=== PATIENT | male | born 1975 | race Caucasian/White ===

== ENCOUNTER 2020-10-07 08:57 | Outpatient (REF) | payer BC, SELFPAY ==
[2020-10-07 11:21] LABS: MANUAL DIFF FLAG NO
[2020-10-07 11:44] LABS: Basophils Percent Auto 0.4 % (0-2); Eosinophils Absolute Auto 0.1 X10*3/uL (0.0-0.4); Eosinophils Percent Auto 2.9 % (0-4); Hematocrit 47.7 % (42-52); Hemoglobin 16.1 g/dl (14.0-18.0); Imm Gran Abs Auto 0.01 X10*3/uL (0.00-0.03); Imm Gran Pct Auto 0.2 % (0.0-0.4); Lymphocytes Absolute Auto 1.6 X10*3/uL (1.2-4.9); Lymphocytes Percent Auto 32.9 % (20-40); Mean Corpuscular HGB Conc 33.8 g/dl (31.0-36.0); Mean Corpuscular Hemoglobin 29.8 pg (27.0-33.0); Mean Corpuscular Volume 88.2 fL (80-98); Mean Platelet Volume 10.7 fL (9.4-12.4); Monocytes Absolute Auto 0.3 X10*3/uL (0.1-1.2); Monocytes Percent Auto 5.5 % (2-11); Neutrophils Absolute Auto 2.8 X10*3/uL (2.0-8.3); Neutrophils Percent Auto 58.1 % (45-73); Platelet Count 205 X10*3/uL (160-400); Red Blood Count 5.41 X10*6/uL (4.60-5.80); Red Cell Distribution Width 12.1 % (11.0-16.0); White Blood Count 4.9 X10*3/uL (4.8-10.8)
[2020-10-07 11:55] LABS: Glucose Urine UA NEG (NEG); Leukocyte Esterase Urine NEG (NEG); Nitrite Urine NEG (NEG); Urine Blood NEG (NEG); Urine Ketones NEG (NEG); Urine Protein NEG (NEG-TRACE)
[2020-10-07 12:02] LABS: Appearance Urine CLEAR; Color Urine YELLOW
[2020-10-07 12:08] LABS: RBC Urine 0 /HPF (0); Squamous Epithelial Cell Urine TRACE /LPF; Urine Talc Crystals TRACE /LPF; WBC Urine 0-2 /HPF (0-4)
[2020-10-07 12:16] LABS: Alanine Aminotransferase 51 U/L (0-40); Albumin Level 4.8 g/dL (3.5-5.0); Alkaline Phosphatase 42 U/L (39-117); Anion Gap 13 (12-20); Aspartate Amino Transferase 19 U/L (5-37); Bilirubin Total 0.8 mg/dL (0.0-1.0); Blood Urea Nitrogen 14 mg/dL (9-16); C Reactive Protein 0.03 mg/dL (< or = 0.50); Calcium 9.4 mg/dL (8.4-10.2); Carbon Dioxide 29 mmol/L (22-29); Chloride 103 mmol/L (96-108); Cholesterol 236 mg/dL; Estimated Glomerular Filt Rate > 60; Glucose Fasting 87 mg/dL (60-99); HDL Cholesterol 41 mg/dL; LDL Cholesterol Calculated 157 mg/dl; Potassium 4.6 mmol/L (3.3-5.1); Sodium 140 mmol/L (135-145); Total Protein 7.3 g/dL (6.5-8.0); Triglycerides 190 mg/dL; Uric Acid 7.2 mg/dL (3.4-7.0)
[2020-10-07 12:25] LABS: Prostate Specific Antigen 0.75 ng/mL (<0.05-4.0); Thyroid Stimulating Hormone 1.29 uIU/mL (0.32-4.0); Vitamin D 25-OH Total 38.5 ng/mL (>30)
[2020-10-07 12:41] LABS: Folate 14.4 ng/mL (> or = 4.0); Vitamin B12 942 pg/mL (200-900)
[2020-10-07 13:52] LABS: Erythrocyte Sedimentation Rate 1 MM/HR (0-15)
[2020-10-09 14:11] LABS: Anti Nuclear Antibody Screen NEGATIVE (NEGATIVE)
== END 2020-10-07 08:58 | disposition home or self-care (01) ==
LOC: HO.HMGCLDS 08:57
PROVIDERS: PCP Internal Medicine; Visit Provider Internal Medicine
DX: M54.32 Sciatica, left side (principal); K64.1 Second degree hemorrhoids; M10.00 Idiopathic gout, unspecified site; L43.9 Lichen planus, unspecified; E55.9 Vitamin D deficiency, unspecified; E53.8 Deficiency of other specified B group vitamins; E78.2 Mixed hyperlipidemia; R76.8 Other specified abnormal immunological findings in serum; Z12.5 Encounter for screening for malignant neoplasm of prostate
CPT/HCPCS: 36415; 80053; 80061; 81001; 82306; 82607; 82746; 84153; 84443; 84550; 85025; 85652; 86038; 86039; 86140

== ENCOUNTER → 2020-10-14 09:43 | Outpatient (BNVA) | payer BC, SELFPAY | PROVIDERS: PCP Internal Medicine; Visit Provider Surgery | DX: K64.4 Residual hemorrhoidal skin tags (principal); K64.8 Other hemorrhoids | CPT/HCPCS: 46600 ==

== ENCOUNTER 2020-11-14 08:54 | Outpatient (REF) | payer BC, SELFPAY ==
--- NOTE | ~2020-11-14 | MR_ITS ---
EXAMINATION: MR LUMBAR SPINE WITHOUT CONTRAST CLINICAL INFORMATION: Left-sided sciatica. Left leg pain and weakness. COMPARISON: None TECHNIQUE: MRI of the lumbar spine was obtained using routine sequences without contrast. FINDINGS: VERTEBRAL BODIES AND PARASPINAL STRUCTURES: The lumbar lordosis is maintained. Grade 1 retrolisthesis of L5 on S1 measuring 0.6 cm. No acute fracture. No loss of vertebral body height. Loss of intervertebral disc height with disc desiccation at L5-S1. No abnormal marrow signal to suggest acute osseous injury. The visualized paraspinal soft tissues are unremarkable. CONUS MEDULLARIS AND CAUDA EQUINA: Normal, terminating at the level of L1. SPINAL LEVELS: T12-L1: No significant disc bulge. No central canal or neural foraminal stenosis. L1-L2: No significant disc bulge. No central canal or neural foraminal stenosis. L2-L3: No significant disc bulge. No central canal or neural foraminal stenosis. L3-L4: No significant disc bulge. Bilateral facet arthropathy. No central canal or neural foraminal stenosis. L4-L5: Minimal disc bulge with bilateral facet arthropathy. No central canal or neural foraminal stenosis. L5-S1: Broad-based disc bulge with a superimposed posterior central disc protrusion. This appears to contact the traversing bilateral S1 nerve roots within the lateral recesses, left greater than right. Bilateral facet arthropathy with mild bilateral neural foraminal stenosis. MR/MR lumbar spine wo con IMPRESSION: 1. Minimal grade 1 retrolisthesis of L5 on S1 with a broad-based disc bulge and superimposed posterior central disc protrusion. This contacts the bilateral traversing S1 nerve roots, left greater than right. Bilateral facet arthropathy with mild bilateral neural foraminal stenosis. 2. Minimal disc bulge at L4-L5 with bilateral facet arthropathy. No significant central canal or neural foraminal stenosis.
== END 2020-11-14 08:55 | disposition home or self-care (01) ==
LOC: HO.MRI 08:54
PROVIDERS: Visit Provider Internal Medicine
DX: M54.32 Sciatica, left side (principal)
CPT/HCPCS: 72148

== ENCOUNTER 2021-01-02 08:00 | Outpatient (RCR) | payer BC, SELFPAY | END 2021-02-05 13:47 | disposition home or self-care (01) | LOC: HO.PTCHIC 08:00 | PROVIDERS: PCP Internal Medicine; Visit Provider Internal Medicine | DX: M54.32 Sciatica, left side (principal); R20.2 Paresthesia of skin; R53.1 Weakness | CPT/HCPCS: 97014; 97110; 97140; 97162 ==

== ENCOUNTER 2021-01-27 06:27 | Outpatient (REF) | payer BC, SELFPAY ==
[2021-01-27 11:44] LABS: Alanine Aminotransferase 33 U/L (0-40); Albumin Level 4.5 g/dL (3.5-5.0); Alkaline Phosphatase 41 U/L (39-117); Aspartate Amino Transferase 19 U/L (5-37); Bilirubin Direct 0.3 mg/dL (0.0-0.5); Bilirubin Total 0.8 mg/dL (0.0-1.0); Cholesterol 211 mg/dL; HDL Cholesterol 41 mg/dL; LDL Cholesterol Calculated 135 mg/dl; Total Protein 6.9 g/dL (6.5-8.0); Triglycerides 179 mg/dL
[2021-01-27 11:54] LABS: Uric Acid 7.6 mg/dL (3.4-7.0)
== END 2021-01-27 06:28 | disposition home or self-care (01) ==
LOC: HO.HMGCLDS 06:27
PROVIDERS: PCP Internal Medicine; Visit Provider Internal Medicine
DX: E78.2 Mixed hyperlipidemia (principal); M10.00 Idiopathic gout, unspecified site
CPT/HCPCS: 36415; 80061; 80076; 84550

== ENCOUNTER 2021-09-05 09:00 | Outpatient (RCR) | payer BC, SELFPAY | END 2021-09-05 10:26 | disposition home or self-care (01) | LOC: HO.PTCHIC 09:00 | PROVIDERS: PCP Internal Medicine; Visit Provider Internal Medicine | DX: M54.31 Sciatica, right side (principal) | CPT/HCPCS: 97110; 97112; 97140; 97161; 97164; 97530 ==

== ENCOUNTER 2021-10-02 06:19 | Outpatient (REF) | payer BC, SELFPAY ==
[2021-10-02 11:28] LABS: Basophils Percent Auto 0.8 % (0-2); Eosinophils Absolute Auto 0.1 X10*3/uL (0.0-0.4); Eosinophils Percent Auto 2.3 % (0-4); Hematocrit 46.7 % (42.0-52.0); Hemoglobin 15.5 g/dl (14.0-18.0); Imm Gran Abs Auto 0.01 X10*3/uL (0.00-0.03); Imm Gran Pct Auto 0.3 % (0.0-0.4); Lymphocytes Absolute Auto 1.5 X10*3/uL (1.2-4.9); Lymphocytes Percent Auto 37.4 % (20-40); MANUAL DIFF FLAG NO; Mean Corpuscular HGB Conc 33.2 g/dl (31.0-36.0); Mean Corpuscular Hemoglobin 29.1 pg (27.0-33.0); Mean Corpuscular Volume 87.6 fL (80.0-98.0); Mean Platelet Volume 11.7 fL (9.4-12.4); Monocytes Absolute Auto 0.3 X10*3/uL (0.1-1.2); Monocytes Percent Auto 6.8 % (2-11); Neutrophils Absolute Auto 2.1 x10*3/uL (2.0-8.3); Neutrophils Percent Auto 52.4 % (45-73); Platelet Count 198 X10*3/uL (160-400); Red Blood Count 5.33 X10*6/uL (4.60-5.80); Red Cell Distribution Width 12.3 % (11.0-16.0)
[2021-10-02 12:02] LABS: Alanine Aminotransferase 35 U/L (0-40); Albumin Level 4.6 g/dL (3.5-5.0); Alkaline Phosphatase 41 U/L (39-117); Anion Gap 13 (12-20); Aspartate Amino Transferase 23 U/L (5-37); Bilirubin Total 1.1 mg/dL (0.0-1.0); Blood Urea Nitrogen 11 mg/dL (9-16); Calcium 9.9 mg/dL (8.4-10.2); Carbon Dioxide 27 mmol/L (22-29); Chloride 104 mmol/L (96-108); Cholesterol 195 mg/dL; Estimated Glomerular Filt Rate > 60; Glucose Fasting 91 mg/dL (60-99); HDL Cholesterol 36 mg/dL; LDL Cholesterol Calculated 131 mg/dl; Potassium 4.5 mmol/L (3.3-5.1); Sodium 139 mmol/L (135-145); Total Protein 7.1 g/dL (6.5-8.0); Triglycerides 140 mg/dL; Uric Acid 6.9 mg/dL (3.4-7.0)
[2021-10-02 12:04] LABS: Thyroid Stimulating Hormone 1.85 uIU/mL (0.32-4.0); Vitamin D 25-OH Total 39.5 ng/mL (>30)
== END 2021-10-02 06:20 | disposition home or self-care (01) ==
LOC: HO.HMGCLDS 06:19
PROVIDERS: Visit Provider Internal Medicine
DX: Z00.00 Encounter for general adult medical examination without abnormal findings (principal); M10.00 Idiopathic gout, unspecified site; E55.9 Vitamin D deficiency, unspecified; E78.2 Mixed hyperlipidemia
CPT/HCPCS: 36415; 80053; 80061; 82306; 84443; 84550; 85025

== ENCOUNTER 2022-05-01 06:55 | Day surgery (SDC) | payer OTHER, SELFPAY ==
[2022-04-28 12:48] VITALS: BMI 26.1
--- NOTE | 2022-04-30 13:38 | P.CONAN_ITS ---
Documented by User: Nikki Sage NP 04/30/22 13:38 HPI - Anesthesia Eval Consult details Narrative: 46yo M for Colonoscopy PMFSH Active Problems Active Problems: All Active Problems (Updated 04/28/22 @ 12:44 by Concetta Nunez RN) Misalignment of right hip (Acute) Segmental and somatic dysfunction of sacral region (Acute) Internal and external bleeding hemorrhoids (Acute) Sciatica (Acute) Past Medical History Medical History (Updated 04/28/22 @ 12:44 by Concetta Nunez RN) Internal and external bleeding hemorrhoids Sciatica Surgical History Surgical History (Updated 04/28/22 @ 12:44 by Concetta Nunez RN) History of hip surgery Social History Social History (Updated 04/28/22 @ 12:47 by Concetta Nunez RN) Household Members: Spouse Alcohol intake: former Patient Tobacco Use Status: Former Tobacco user Quit Date: 1997 Tobacco use type: Cigarette Use of substances other than those prescribed or required for medical reasons: Yes Substance Use Type Other:: CBD gummies Substance Use Frequency: Weekly Are you DNR?: No Advance Directives: No Advance Directives Information Provided: Yes Meds Allergies Allergy/AdvReac Type Severity Reaction Status Date / Time Penicillins Allergy Severe Unknown Verified 10/14/20 09:59 red dye Allergy Severe Unknown Verified 10/14/20 09:59 Home Medications Medication Instructions Recorded Confirmed Last Taken Type cholecalciferol (vitamin D3) 50 50 mcg PO DAILY 10/14/20 04/28/22 Unknown History mcg (2,000 unit) capsule hydrocortisone 2.5 % topical cream 1 appl [place] BID-QID PRN 10/14/20 10/14/20 Unknown History with perineal applicator (Proctozone-HC) mecobalamin (vitamin B12) 1,000 1,000 mcg sublingual DAILY 10/14/20 04/28/22 Unknown History mcg disintegrating tablet,sublingual niacin 400 mg (inositol niacinate 1 cap PO DAILY 10/14/20 04/28/22 Unknown History 500 mg) capsule (Niacin No Flush) flaxseed oil 1,000 mg capsule 1,000 mg PO DAILY 04/28/22 04/28/22 04/25/22 History turmeric (bulk) 95 % powder 1 ea miscellaneous DAILY 04/28/22 04/28/22 Unknown History (Curcumin) Exam Exam Date and Time: April 30, 2022 1338 Height,Weight and Vital Signs: Height 5 ft 10 in Weight 82.554 kg Assessment and Plan Assessment Anesthesia Assessment: Chart Reviewed Documented by User: Waylon Barrett MD 05/01/22 08:56 ON LICENSE OF [facility] Past Medical History Medical History (Updated 04/28/22 @ 12:44 by Concetta Nunez RN) Internal and external bleeding hemorrhoids Sciatica Functional capacity: bed bound Family History Family history of problems with anesthesia: No Surgical History Surgical History (Updated 04/28/22 @ 12:44 by Concetta Nunez RN) History of hip surgery History of Problems with Anesthesia: No Social History Social History (Updated 04/28/22 @ 12:47 by Concetta Nunez RN) Household Members: Spouse Alcohol intake: former Patient Tobacco Use Status: Former Tobacco user Quit Date: 1997 Tobacco use type: Cigarette Use of substances other than those prescribed or required for medical reasons: Yes Substance Use Type Other:: CBD gummies Substance Use Frequency: Weekly Are you DNR?: No Advance Directives: No Advance Directives Information Provided: Yes Meds Allergies Allergy/AdvReac Type Severity Reaction Status Date / Time Penicillins Allergy Severe Unknown Verified 10/14/20 09:59 red dye Allergy Severe Unknown Verified 10/14/20 09:59 Home Medications Medication Instructions Recorded Confirmed Last Taken Type cholecalciferol (vitamin D3) 50 50 mcg PO DAILY 10/14/20 04/28/22 Unknown His tory mcg (2,000 unit) capsule hydrocortisone 2.5 % topical cream 1 appl [place] BID-QID PRN 10/14/20 10/14/20 Unknown History with perineal applicator (Proctozone-HC) mecobalamin (vitamin B12) 1,000 1,000 mcg sublingual DAILY 10/14/20 04/28/22 Unknown History mcg disintegrating tablet,sublingual niacin 400 mg (inositol niacinate 1 cap PO DAILY 10/14/20 04/28/22 Unknown History 500 mg) capsule (Niacin No Flush) flaxseed oil 1,000 mg capsule 1,000 mg PO DAILY 04/28/22 04/28/22 04/25/22 History turmeric (bulk) 95 % powder 1 ea miscellaneous DAILY 04/28/22 04/28/22 Unknown History (Curcumin) Exam Airway Mallampati Class: III TM Dist: >3cm Neck ROM: Full Loose/Missing/Broken Teeth: Yes (Chipped teeth , crowns , fillings ) Heart: S1,S2 Lungs: b/l breath sounds Assessment and Plan Assessment Anesthesia Assessment: Anesthesia Plan Discussed Final Anesthetic Review Family History of Problems with Anesthesia: No History of Problems with Anesthesia: No NPO: Yes ASA Class: II Final Preanesthetic Review: Meds/Allgs Chart Reviewed, Consent Obtained/Reviewed and Anes Risks/Benef Reviewed Patient Risk: Intermediate Procedure Risk: Intermediate Anesthetic Plan Anesthetic Plan: MAC: Disposition: Standard PACU
[2022-05-01 07:10] VITALS: BP 110/74; PULSE 77; RESP 16; TEMP 37.1; O2SAT 100
[2022-05-01] MEDS: Lactated Ringers 1,000 ML 100 ML IVCONT (07:17)
--- NOTE | 2022-05-01 08:08 | MHC.SHP ---
Pre-Procedural Eval Section A Date of Service: 05/01/22 Section B Chief Complaint: screening Details of Present Illness: see H&P no changes Relevant Family History (Specify if Yes): No Relevant Social History: None Present Medications: see Short Stay Collaborative assessment Medical History: No relevant PMH History of Previous Operations: No relevant previous surgery Allergies: Allergies Allergy/AdvReac Type Severity Reaction Status Date / Time Penicillins Allergy Severe Unknown Verified 10/14/20 09:59 red dye Allergy Severe Unknown Verified 10/14/20 09:59 Review of Systems Sugical H&P ROS: Negative: Constitution, Cardiovascular, Respiratory, Neurological, Psychiatric, Hem-Onc, Allergic/Immunologic, Gastrointestinal, Genitourinary, Musculoskeletal, Integumentary, Endocrine and Eyes/Ears/Nose/Throat Exam Surgical H&P Exam: Normal: HEENT, Normal: Heart, Normal: Lungs, Normal: Extremities, Normal: Abdomen, Normal: Skin and Normal: Neurological Plan Diagnosis/Plan: Unchanged I have reviewed the history and physical and performed a pertinent physical examination on my patient. No changes have occurred unless specified.
[2022-05-01 08:41] VITALS: BP 100/52; PULSE 68; RESP 16; TEMP 37.7; O2SAT 98
--- NOTE | 2022-05-01 08:47 | P.BOP_ITS ---
Brief Operative Note Date of Service: 05/01/22 Pre-op diagnosis: screening Post-op diagnosis: same (colon polyps) Procedure: colonoscopy Surgeon: Medhat Lanza Anesthesia: MAC Was an Knitting Demonstrator used for this Procedure?: No Estimated blood loss (mL): 2 Pathology: other Condition: stable Disposition: PACU
[2022-05-01 09:00] VITALS: BP 110/61; PULSE 76; RESP 17; TEMP 36.4; O2SAT 99
--- NOTE | 2022-05-01 22:19 | OP_ITS ---
SURGEON: Medhat Lanza MD INDICATIONS: Colon cancer screening. PREOPERATIVE DIAGNOSIS: POSTOPERATIVE DIAGNOSIS: PROCEDURE PERFORMED: Colonoscopy to the terminal ilium. ESTIMATED BLOOD LOSS: COMPLICATIONS: ANESTHESIA: ASSISTANTS: SPECIMENS: DESCRIPTION OF PROCEDURE: Date: 05/01/22 History and physical performed. The risks and benefits of the procedure were explained to the patient. Informed consent was obtained. The patient was placed in the left lateral decubitus position. A digital rectal exam was performed and was found to be normal. The Olympus pediatric video colonoscope was introduced into the rectum and advanced to the cecum without difficulty. The cecum was identified by transillumination, palpation, and identification of the ileocecal valve. Examination was performed. The scope was removed. He tolerated the procedure well and was taken to recovery area in stable condition. FINDINGS: The terminal ileum was examined and appeared normal. The visualized colonic mucosa was normal. The quality of the prep was good. Two polyps were identified. The first was located at 60 cm and was removed with a snare. This measured approximately 8 mm. The 2nd was located in the rectum and measured less than 5 mm. This was removed with biopsy forceps. No other polyps were identified. Retroflexed examination showed some small internal hemorrhoids. IMPRESSION: Colon polyps. RECOMMENDATION: 1. Follow up the biopsy results. 2. Repeat colonoscopy in 7 years if the polyps are tubular adenomas. MD SHERWIN Nolasco/MANDY / [id number] MTDD
== END 2022-05-01 09:50 | disposition home or self-care (01) ==
PROVIDERS: PCP Internal Medicine; Visit Provider Internal Medicine Gastroenterology
PROC: 0DJD8ZZ Inspection of Lower Intestinal Tract, Via Natural or Artificial Opening Endoscopic (ICD-10-PCS; CPT 45378; principal; 2022-05-01 08:10)
DX: Z12.11 Encounter for screening for malignant neoplasm of colon (principal); D12.4 Benign neoplasm of descending colon; K62.1 Rectal polyp; K64.8 Other hemorrhoids; M51.36 Other intervertebral disc degeneration, lumbar region; M54.30 Sciatica, unspecified side; Z88.0 Allergy status to penicillin; Z87.891 Personal history of nicotine dependence
CPT/HCPCS: 45385; 45380; 88305

== ENCOUNTER 2022-05-06 10:59 | Outpatient (REF) | payer OTHER, SELFPAY ==
[2022-05-06 13:59] LABS: MANUAL DIFF FLAG NO
[2022-05-06 14:05] LABS: Basophils Percent Auto 0.6 % (0-2); Eosinophils Absolute Auto 0.1 X10*3/uL (0.0-0.4); Eosinophils Percent Auto 2.1 % (0-4); Hematocrit 46.6 % (42.0-52.0); Hemoglobin 15.5 g/dl (14.0-18.0); Imm Gran Abs Auto 0.01 X10*3/uL (0.00-0.03); Imm Gran Pct Auto 0.2 % (0.0-0.4); Lymphocytes Absolute Auto 2.2 X10*3/uL (1.2-4.9); Lymphocytes Percent Auto 32.9 % (20-40); Mean Corpuscular HGB Conc 33.3 g/dl (31.0-36.0); Mean Corpuscular Hemoglobin 28.9 pg (27.0-33.0); Mean Corpuscular Volume 86.8 fL (80.0-98.0); Mean Platelet Volume 11.3 fL (9.4-12.4); Monocytes Absolute Auto 0.4 X10*3/uL (0.1-1.2); Monocytes Percent Auto 5.9 % (2-11); Neutrophils Absolute Auto 3.8 x10*3/uL (2.0-8.3); Neutrophils Percent Auto 58.3 % (45-73); Platelet Count 214 X10*3/uL (160-400); Red Blood Count 5.37 X10*6/uL (4.60-5.80); Red Cell Distribution Width 12.7 % (11.0-16.0); White Blood Count 6.6 X10*3/uL (4.8-10.8)
[2022-05-06 14:44] LABS: Alanine Aminotransferase 39 U/L (0-40); Albumin Level 4.9 g/dL (3.5-5.0); Alkaline Phosphatase 46 U/L (39-117); Anion Gap 16 (12-20); Aspartate Amino Transferase 28 U/L (5-37); Bilirubin Total 0.4 mg/dL (0.0-1.0); Blood Urea Nitrogen 13 mg/dL (9-16); C Reactive Protein 0.04 mg/dL (< or = 0.50); Calcium 9.7 mg/dL (8.4-10.2); Carbon Dioxide 27 mmol/L (22-29); Chloride 100 mmol/L (96-108); Estimated Glomerular Filt Rate > 60; Glucose Random 79 mg/dL (60-115); Phosphorus 4.6 mg/dL (2.7-4.5); Potassium 4.4 mmol/L (3.3-5.1); Sodium 139 mmol/L (135-145); Total Protein 7.3 g/dL (6.5-8.0)
[2022-05-06 14:51] LABS: Erythrocyte Sedimentation Rate 2 MM/HR (0-15)
== END 2022-05-06 11:00 | disposition home or self-care (01) ==
LOC: HO.HMGCLDS 10:59
PROVIDERS: PCP Internal Medicine; Visit Provider Internal Medicine
DX: M62.89 Other specified disorders of muscle (principal)
CPT/HCPCS: 36415; 80053; 83735; 84100; 85025; 85652; 86140

== ENCOUNTER 2022-06-24 12:09 | Outpatient (REF) | payer OTHER, SELFPAY ==
--- NOTE | ~2022-06-24 | XR_ITS ---
EXAMINATION: XR FOOT, RIGHT XR FOOT, LEFT CLINICAL INFORMATION: Bilateral foot pain. COMPARISON: None TECHNIQUE: Each foot is imaged in 3 views. There are a total of 6 views. FINDINGS: Right: Normal bony mineralization. No periarticular demineralization. No acute or healing fracture, dislocation, or arthropathy. No erosive changes. No visible ankle capsular effusion. The subtalar joint appears normal. The retrocalcaneal recess is preserved. Left: Normal bony mineralization. No periarticular demineralization. No acute or healing fracture, dislocation, or arthropathy. No erosive changes. No visible ankle capsular effusion. The subtalar joint appears normal. The retrocalcaneal recess is preserved. XR/XR foot RT min 3V IMPRESSION: -Unremarkable bilateral feet. -No fracture or arthropathy.
--- NOTE | ~2022-06-24 | XR_ITS ---
EXAMINATION: XR FOOT, RIGHT XR FOOT, LEFT CLINICAL INFORMATION: Bilateral foot pain. COMPARISON: None TECHNIQUE: Each foot is imaged in 3 views. There are a total of 6 views. FINDINGS: Right: Normal bony mineralization. No periarticular demineralization. No acute or healing fracture, dislocation, or arthropathy. No erosive changes. No visible ankle capsular effusion. The subtalar joint appears normal. The retrocalcaneal recess is preserved. Left: Normal bony mineralization. No periarticular demineralization. No acute or healing fracture, dislocation, or arthropathy. No erosive changes. No visible ankle capsular effusion. The subtalar joint appears normal. The retrocalcaneal recess is preserved. XR/XR foot LT min 3V IMPRESSION: -Unremarkable bilateral feet. -No fracture or arthropathy.
[2022-06-24 14:12] LABS: MANUAL DIFF FLAG NO
[2022-06-24 14:16] LABS: Basophils Percent Auto 0.6 % (0-2); Eosinophils Absolute Auto 0.1 X10*3/uL (0.0-0.4); Eosinophils Percent Auto 2.1 % (0-4); Hematocrit 45.4 % (42.0-52.0); Hemoglobin 15.2 g/dl (14.0-18.0); Imm Gran Abs Auto 0.01 X10*3/uL (0.00-0.03); Imm Gran Pct Auto 0.2 % (0.0-0.4); Lymphocytes Absolute Auto 1.8 X10*3/uL (1.2-4.9); Lymphocytes Percent Auto 29.1 % (20-40); Mean Corpuscular HGB Conc 33.5 g/dl (31.0-36.0); Mean Corpuscular Hemoglobin 29.3 pg (27.0-33.0); Mean Corpuscular Volume 87.6 fL (80.0-98.0); Mean Platelet Volume 11.3 fL (9.4-12.4); Monocytes Absolute Auto 0.3 X10*3/uL (0.1-1.2); Monocytes Percent Auto 5.2 % (2-11); Neutrophils Percent Auto 62.8 % (45-73); Platelet Count 218 X10*3/uL (160-400); Red Blood Count 5.18 X10*6/uL (4.60-5.80); Red Cell Distribution Width 12.5 % (11.0-16.0); White Blood Count 6.3 X10*3/uL (4.8-10.8)
[2022-06-24 14:36] LABS: Alanine Aminotransferase 40 U/L (0-40); Albumin Level 4.8 g/dL (3.5-5.0); Alkaline Phosphatase 49 U/L (39-117); Anion Gap 15 (12-20); Aspartate Amino Transferase 28 U/L (5-37); Bilirubin Total 0.8 mg/dL (0.0-1.0); Blood Urea Nitrogen 15 mg/dL (9-16); C Reactive Protein 0.47 mg/dL (< or = 0.50); Calcium 9.8 mg/dL (8.4-10.2); Carbon Dioxide 28 mmol/L (22-29); Chloride 102 mmol/L (96-108); Estimated Glomerular Filt Rate > 60; Glucose Random 86 mg/dL (60-115); Potassium 4.1 mmol/L (3.3-5.1); Rheumatoid Factor < 15.0 IU/mL (<15.0); Sodium 141 mmol/L (135-145); Total Protein 7.6 g/dL (6.5-8.0); Uric Acid 6.1 mg/dL (3.4-7.0)
[2022-06-24 15:10] LABS: Erythrocyte Sedimentation Rate 2 MM/HR (0-15)
== END 2022-06-24 12:10 | disposition home or self-care (01) ==
LOC: HO.HMGCX 12:09
PROVIDERS: PCP Internal Medicine; Visit Provider Internal Medicine
DX: M79.672 Pain in left foot (principal); M79.671 Pain in right foot
CPT/HCPCS: 36415; 73630; 80053; 84550; 85025; 85652; 86140; 86431

== ENCOUNTER 2022-09-23 09:51 | Outpatient (REF) | payer OTHER, SELFPAY ==
--- NOTE | ~2022-09-23 | XR_ITS ---
EXAMINATION: XR CHEST CLINICAL INFORMATION: Cough COMPARISON: None TECHNIQUE: 2 views of the chest were obtained. FINDINGS: No significant abnormality is noted involving the heart, lungs, mediastinum, bony thorax or soft tissues. XR/XR chest 2V IMPRESSION: Unremarkable examination.
== END 2022-09-23 09:52 | disposition home or self-care (01) ==
LOC: HO.HMGCX 09:51
PROVIDERS: Visit Provider Internal Medicine
DX: R05.9 Cough, unspecified (principal)
CPT/HCPCS: 71046

== ENCOUNTER 2022-10-23 06:39 | Outpatient (REF) | payer OTHER, SELFPAY ==
[2022-10-23 13:03] LABS: Estimated Average Glucose 103 mg/dL; Hemoglobin A1c % 5.2 %
[2022-10-23 13:22] LABS: Anion Gap 10 (12-20); Blood Urea Nitrogen 14 mg/dL (9-16); Calcium 9.1 mg/dL (8.4-10.2); Carbon Dioxide 29 mmol/L (22-29); Chloride 104 mmol/L (96-108); Cholesterol 205 mg/dL; Estimated Glomerular Filt Rate > 60; Glucose Random 88 mg/dL (60-115); HDL Cholesterol 40 mg/dL; LDL Cholesterol Calculated 144 mg/dl; Potassium 4.4 mmol/L (3.3-5.1); Sodium 139 mmol/L (135-145); Triglycerides 106 mg/dL
[2022-10-26 11:34] LABS: ~HepC Num1 0.18 S/CO (0.00-0.79); ~Hepatitis C Antibody Nonreactive (Nonreactive)
== END 2022-10-23 06:40 | disposition home or self-care (01) ==
LOC: HO.HMGCLDS 06:39
PROVIDERS: Visit Provider Physician Assistant
DX: Z11.59 Encounter for screening for other viral diseases (principal); Z82.49 Family history of ischemic heart disease and other diseases of the circulatory system; Z83.3 Family history of diabetes mellitus
CPT/HCPCS: 36415; 80048; 80061; 83036; 86803

== ENCOUNTER 2022-12-03 07:38 | Outpatient (REF) | payer OTHER, SELFPAY ==
--- NOTE | ~2022-12-03 | CT_ITS ---
EXAMINATION: CT HEAD WITHOUT CONTRAST CLINICAL INFORMATION: Memory impairment COMPARISON: None TECHNIQUE: Contiguous axial imaging was performed from the skull base to vertex without intravenous administration of contrast. This CT examination was performed using dose optimization techniques as appropriate, variously including the following: *Automated exposure control *Adjustment of mA and/or kV according to patient size (this includes techniques or standardized protocols for targeted exams where dose is matched to indication/reason for exam; i.e. extremities or head) *Use of iterative reconstruction technique DLP: 817 mGy-cm FINDINGS: No intracranial hemorrhage, tumors or acute infarcts noted. The ventricles and sulci are normal in size and configuration. No focal parenchymal lesions of the brain or abnormal extra-axial fluid collections identified. The orbits and globes are partially included in the image [id number] and demonstrate no abnormalities. No significant opacification of the visualized paranasal sinuses, mastoid air cells and middle ear cavities. CT/CT head/brain wo IV con IMPRESSION: Normal unenhanced CT of the head.
== END 2022-12-03 07:39 | disposition home or self-care (01) ==
LOC: HO.CT 07:38
PROVIDERS: PCP Physician Assistant; Visit Provider Physician Assistant
DX: R41.3 Other amnesia (principal)
CPT/HCPCS: 70450

== ENCOUNTER 2023-12-22 14:21 | Outpatient (AMB) | payer OTHER, SELFPAY ==
--- NOTE | 2023-12-22 14:22 | A.OFFVIS_ITS ---
Vital Signs 12/22/23 14:23 Height 5 ft 10 in Weight 194 lb 0.108 oz BMI 27.8 BP 112/69 Blood Pressure Location Lt brachial Position Sitting Pulse 61 Intake Visit Reasons: Rectal pain Intake Note: Franck presents in the office as a new patient for rectal pains. CC: No bleeding just pains, he states it is not when he goes to the bathroom and it is in one area. He states that he has a l5 s1 herniated disk and not sure if the pain could be related to that. Allergies Penicillins Allergy (Severe, Verified 12/22/23 14:24) Unknown red dye Allergy (Severe, Verified 12/22/23 14:24) Unknown HPI HPI Rectal pain: Details: COLONOSCOPY 05/01/2022 DR. ZAMORA FINDINGS: The terminal ileum was examined and appeared normal. The visualized colonic mucosa was normal. The quality of the prep was good. Two polyps were identified. The first was located at 60 cm and was removed with a snare. This measured approximately 8 mm. The 2nd was located in the rectum and measured less than 5 mm. This was removed with biopsy forceps. No other polyps were identified. Retroflexed examination showed some small internal hemorrhoids. IMPRESSION: Colon polyps. RECOMMENDATION: 1. Follow up the biopsy results. 2. Repeat colonoscopy in 7 years if the polyps are tubular adenomas. PATHOLOGY Diagnosis A. Colon, at 60 cm, polyp: Tubular adenoma, completely excised; negative for high-grade dysplasia and carcinoma. B. Colon, rectal polyp: Hyperplastic polyp TODAY'S VISIT: Patient is here today for initial consultation. Patient was referred by PCP for ongoing rectal pain. Patient had thrombosed hemorrhoids in the past that healed. Seen General surgery for this couple years ago. Last colonoscopy as mentioned above with Dr. Zamora in 2021. One 5 mm hyperplastic rectal polyp removed at that time. Patient denies melena, hematochezia, unintentional weight loss or ribbon like stools. Patient takes Metamucil tablets daily and reports that usually he moves his bowels every day. He does admit that sometimes he does not feel like he empties his bowels completely. Patient denies any pain with bowel movements, however sometimes patient will have pain out of nowhere. Patient describes the pain as sharp in his rectum more on the side of his rectum and feels like it is inside. Patient denies any diarrhea. Describes this pain going on for the last few months and it has not constant it happens periodically. Patient reports that when pain like that happens it is very severe. Patient was seen Dr. Wheeler in 2020 for hemorrhoids. Was found to have moderate-size thrombosed hemorrhoid any after not to go for surgery at that time. [facility] Medical History Internal and external bleeding hemorrhoids Sciatica Surgical History Hx of colonoscopy History of hip surgery Social History Household Members: Spouse Alcohol intake: former Patient Tobacco Use Status: Former Tobacco user Quit Date: 1997 Tobacco use type: Cigarette Review of Systems Const Denies weight gain and Denies weight loss ENT Reports no additional complaints, Denies dysphagia and Denies odynophagia Card Reports no additional complaints Resp Reports no additional complaints GI Denies abdominal pain, Denies belching, Denies melena, Denies bloating, Denies change in bowel habits, Denies dysphagia, Denies excessive flatus, Denies dyspepsia, Denies heartburn, Denies diarrhea, Denies loose stools, Denies nausea, Denies odynophagia and Denies vomiting Reports no additional complaints Musc Reports no additional complaints Neuro Reports no additional complaints Psych Reports no additional complaints Endo Reports no additional complaints Physical Exam Vital Signs: Last Vital Signs Pulse 61 12/22/23 14:23 BP 112/69 12/22/23 14:23 BMI result Body Mass Index 27.8 Const General: healthy appearing, no acute distress and well developed Nutritional Appearance: well nourished Orientation/consciousness: patient oriented x3 Resp Effort & Inspection: normal respiratory effort, able to speak in complete sentences, no tracheal deviation and symmetric chest movement Auscultation: clear to auscultation bilaterally Cardio Rate: regular rate GI Inspection: Yes normal to inspection and No distended Palpation (GI): Soft to palpation, not firm, nontender and No hepatosplenomegaly present Auscultation: normal bowel sounds Rectal Exam - Male: Yes visual inspection normal, Yes normal sphincter tone and Yes tenderness (at 10-11 o'clock ? Fissure/hemorrhoid/lesion/serrated polyp) General: Yes no CVA tenderness Back/Spine/Pelvis Back: no CVA tenderness Skin General skin exam: elasticity normal, turgor normal and dry skin Neuro General: patient oriented x3 Psych Appearance: grossly normal Mental Status: mental status grossly normal Assessment & Plan Assessment & Plan (1) Rectal pain: Code(s): K62.89 - Other specified diseases of anus and rectum Plan Tenderness at 10-11 o'clock about 3 cm into anal canal. [place] ridge like that could represent fissure/lesion/serrated polyp. No blood noted on gloves upon withdrawal. Patient does not report any blood after bowel movement or when wiping. Will send a script for Proctosol cream and suppository. Patient was encouraged to do Sitz baths with Epsom salts. Patient will buy [id number] Colace. He is allergic to red dye, will get dye free capsules. Referral to Dr. Wheeler. Patient will follow-up in our office on as needed basis. He is agreeable to this plan and verbalizes understanding of instructions. He was given the opportunity to ask questions and all questions answered. Thank you for allowing me to participate in his care Orders: Referrals General Surgery Referral K62.89 - Other specified diseases of anus and rectum Medications: New hydrocortisone acetate 30 mg AK BEDTIME 12 ea 0RF K64.9 - Unspecified hemorrhoids hydrocortisone 2.5% (Proctosol HC) 1 appl [place] BID-QID PRN 30 grams 2RF hemorrhoids K64.9 - Unspecified hemorrhoids Coding Level of Care Code New Pt Level 4 (59533) Diagnoses Rectal pain K62.89 Time Spent (min) 45 Comment 30 minutes spent with patient and additional 15 minutes spent reviewing his records
[2023-12-22 14:23] VITALS: BP 112/69; PULSE 61; BMI 27.8
== END 2023-12-22 15:01 | disposition home or self-care (01) ==
PROVIDERS: PCP Physician Assistant; Visit Provider Nurse Practitioner Family
DX: K62.89 Other specified diseases of anus and rectum (principal)
CPT/HCPCS: 99204

== ENCOUNTER → 2023-12-22 14:21 | Outpatient (BNVA) | payer OTHER, SELFPAY | PROVIDERS: PCP Physician Assistant; Visit Provider Nurse Practitioner Family ==

== ENCOUNTER 2023-12-30 15:45 | Outpatient (AMB) | payer OTHER, SELFPAY ==
[2023-12-30 15:48] VITALS: BP 127/61; PULSE 58; BMI 27.8
--- NOTE | 2023-12-30 15:48 | A.OFFVIS_ITS ---
Vital Signs 12/30/23 15:48 Height 5 ft 10 in Weight 194 lb 0.108 oz BMI 27.8 BP 127/61 Blood Pressure Location Rt brachial Position Sitting Pulse 58 Intake Visit Reasons: s/p anal fissure Intake Note: This patient presents for an assessment for anal fissure. Patient c/o; reports no changes. Fuel Assembler Required: No Accompanied by: Self / Same As Patient Allergies Penicillins Allergy (Severe, Verified 12/30/23 15:55) Unknown red dye Allergy (Severe, Verified 12/30/23 15:55) Unknown Medication List - Last Reconciled 12/30/23 by Juan Wheeler MD cholecalciferol (vitamin D3) 50 mcg PO DAILY flaxseed oil 1,000 mg PO DAILY hydrocortisone 2.5% (Proctosol HC) 1 appl [place] BID-QID PRN hydrocortisone acetate 30 mg IA BEDTIME mecobalamin (vitamin B12) 1,000 mcg sublingual DAILY niacin (inositol niacinate) 400 mg niacin (500 mg) (Niacin No Flush) 1 cap PO DAILY rosuvastatin (Crestor) 5 mg PO DAILY turmeric (bulk) 95% (Curcumin) 1 ea miscellaneous DAILY HPI HPI s/p anal fissure: Details: 48-year-old male referred to me for a question of an anal fissure. He says that about 2 months ago, [place] had severe spasm type pain to the left of his anus. He says that it lasted for about 10 minutes but he says he almost fainted because of the severity of the pain. He says that this resolved spontaneously. He does have a history of thrombosed hemorrhoids about 3 years ago. He says he has had not any recurrence since that time. 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 He denies any blood per rectum. He has no problems with bowel movements. He denies any palpable mass in the anal area. [facility] Medical History (Updated 12/30/23 @ 16:19 by Juan Wheeler MD) Anal pain Internal and external bleeding hemorrhoids Sciatica Surgical History Hx of colonoscopy History of hip surgery Social History Household Members: Spouse Alcohol intake: former Patient Tobacco Use Status: Former Tobacco user Quit Date: 1997 Tobacco use type: Cigarette Review of Systems Const Denies chills and Denies fever(s) Card Denies chest pain, Denies dyspnea and Denies dyspnea on exertion Resp Denies cough, Denies dyspnea and Denies dyspnea on exertion GI Denies hematochezia and Denies change in bowel habits Denies hematuria and Denies difficulty urinating Musc Denies back pain and Denies limited range of motion Neuro Denies focal weakness and Denies convulsions Psych Denies depression and Denies mood swings Physical Exam Vital Signs: Last Vital Signs Pulse 58 12/30/23 15:48 BP 127/61 12/30/23 15:48 BMI result Body Mass Index 27.8 Const General: comfortable and no acute distress Orientation/consciousness: patient oriented x3 Neck Neck: Yes no lymphadenopathy Resp Auscultation: clear to auscultation bilaterally Cardio Rhythm: regular rhythm GI Other: Rectal exam shows no perianal mass or lesion, anoscopy done Palpation (GI): Soft to palpation, nontender and no guarding Neuro General: patient oriented x3 Office Procedures Anoscopy He was in kyrie-knife position. Retraction of the anal orifice does not reveal any anal fissure. I was able to insert the anoscope without difficulty. There were no lesions seen. He did have hemorrhoids, internal external on both the left and right side. There was no bleeding. There was no fissure or lesions or ulceration. There was no induration on digital exam. He did not have any hypertonicity. There was no tenderness. [id number] Assessment & Plan Assessment & Plan (1) Anal pain: Code(s): K62.89 - Other specified diseases of anus and rectum Category: Medical Plan: He had an episode of severe perianal pain to the left side about 2 months ago lasting for about 10 minutes. He describes this as something of a ?spasm?. He has not had any recurrence although he describes some very minor episodes. Current exam does not reveal any anal fissure. I explained to him that he may have had levator spasm at that time. I do not see any lesion on anoscopy. He does have hemorrhoids which he knows from before. He does not want to proceed with hemorrhoidectomy at this time as he does not feel that this is causing him problems He will follow up with me on a p.r.n. basis he says. Coding Level of Care Code Est Pt Level 3 (78194) Diagnoses Anal pain K62.89 CPT Codes Details - CPT: [id number] ([id number])
== END 2023-12-30 16:15 | disposition home or self-care (01) ==
PROVIDERS: PCP Physician Assistant; Visit Provider Surgery
DX: K62.89 Other specified diseases of anus and rectum (principal)
CPT/HCPCS: 46600; 99213

== ENCOUNTER → 2023-12-30 15:45 | Outpatient (BNVA) | payer OTHER, SELFPAY | PROVIDERS: PCP Physician Assistant; Visit Provider Surgery | DX: K62.89 Other specified diseases of anus and rectum (principal); K64.4 Residual hemorrhoidal skin tags; K64.8 Other hemorrhoids | CPT/HCPCS: 46600 ==